=== PATIENT | female | born 1970 | race Caucasian/White ===

== ENCOUNTER → 2023-06-08 | Outpatient (CLI) | payer BC | LOC: MAMMO 08:46 | DX: Z12.31 Encounter for screening mammogram for malignant neoplasm of breast (principal) ==

== ENCOUNTER → 2023-11-30 | Outpatient (CLI) | payer BC | LOC: RAD 10:13 | DX: D25.9 Leiomyoma of uterus, unspecified (principal); N83.201 Unspecified ovarian cyst, right side ==